=== PATIENT | male | born 1990 | race Caucasian/White ===

== ENCOUNTER 2020-09-20 10:42 | Emergency (ER) | payer OTHER ==
[2020-09-20 10:50] VITALS: BP 136/82
[2020-09-20] MEDS ORDERED: AMOX/CLAV 875 MG/125 MG TABLET PO STA (11:17)
--- NOTE | 2020-09-20 11:19 | ED Physician Documentation ---
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 He is immunized against rabies. He was at work today and while examining a dog was bitten on the bridge of the nose. No epistaxis. Minimal pain. Dog has also had primary rabies vaccination. He is up-to-date on tetanus. Review of Systems Constitutional: reports: Reviewed and negative Eyes: reports: Reviewed and negative Ears: reports: Reviewed and negative Nose: reports: Reviewed and negative PD PAST MEDICAL HISTORY - Present Medications Home Medications: Ambulatory Orders Medication Instructions Recorded Confirmed Amox/Clav 875/125 [Augmentin] 1 each PO Q12H #10 tablet 09/20/20 - Allergies Allergies/Adverse Reactions: Allergies Allergy/AdvReac Type Severity Reaction Status Date / Time No Known Drug Allergies Allergy Verified 09/20/20 10:50 PD ED PE NORMAL - Vitals Vital signs reviewed: Yes - General General: Alert and oriented X 3, No acute distress - HEENT HEENT: Other (2 puncture wounds over the bridge of the nose, hemostatic, no deformity or tenderness. No epistaxis.) - Neck Neck: Supple, no meningeal sign, No bony TTP - Neuro Neuro: Alert and oriented X 3, Normal speech Results - Vitals Vitals: Vital Signs - 24 hr 09/20/20 10:45 Temperature 36.9 C Heart Rate 63 Respiratory 16 Rate Blood Pressure 136/82 H O2 Saturation 97 Oxygen O2 Source Room air PD MEDICAL DECISION MAKING - ED course ED course: Wounds are quite small and probably do not require any specific wound care other than soap and water. He is started on Augmentin. Offered rabies booster but given the circumstances it is not strictly necessary and he declined. Departure - Departure Disposition: 01 Home, Self Care Clinical Impression: Dog bite of face Qualifiers: Encounter type: initial encounter Qualified Code(s): S01.85XA - Open bite of other part of head, initial encounter; W54.0XXA - Bitten by dog, initial encounter Condition: Good Record reviewed to determine appropriate education?: Yes Instructions: ED Bite Dog Prescriptions: Amox/Clav 875/125 [Augmentin] 1 each PO Q12H #10 tablet Comments: Soap and water twice a day. Return for signs of infection including increased pain, redness, swelling, drainage, fevers.
== END 2020-09-20 11:28 | disposition home or self-care (01) ==
LOC: ED 10:42
DX: S01.25XA Open bite of nose, initial encounter (principal); W54.0XXA Bitten by dog, initial encounter; Y93.89 Activity, other specified; Y99.0 Civilian activity done for income or pay
CPT/HCPCS: 1040M; 99282; 99283; A9270